=== PATIENT | male | born 1955 | race Caucasian/White ===

== ENCOUNTER → 2022-04-23 08:49 | Outpatient (BNVA) | payer MEDICARE, SELFPAY | PROVIDERS: PCP Family Medicine; Referring Provider Pediatrics; Visit Provider Internal Medicine | DX: I45.10 Unspecified right bundle-branch block (principal) | CPT/HCPCS: 93005; 99202 ==

== ENCOUNTER → 2022-05-02 08:44 | Outpatient (REF) | payer MEDICARE, SELFPAY ==
--- NOTE | 2022-05-02 08:47 | CA_ITS ---
Transthoracic Echocardiogram Amended Patient (Last, First, Middle): Iker Denis J Gender: Male Date of : 1955 Age: 66 Procedure Date: 05/02/2022 Procedure Type: Transthoracic Echocardiogram Location: OP Height: 180.34 cm Weight: 116.12 kg BSA: 2.34 m2 Heart Rate: 65 bpm BP: 120 / 80 mmHg Blood Bank Worker: SB Referring MD: Demetrio Mathew MD Systems Admin: Santos Mora MD Symptoms: I45.10 - Unspecified right bundle-branch block Study Quality: Adequate ECG Rhythm: Sinus Conclusions: - 1. Normal LV systolic function with mild asymmetric septal hypertrophy with impaired relaxation filling pattern 2. Normal cardiac valvular Doppler 3. Normal RV systolic pressure 4. Mildly dilated ascending aorta at 3.9 cm 5. No gross pericardial effusion Findings Left Ventricle Normal left ventricular size, thickness, and systolic function. The visually estimated ejection fraction is between 65-70%. There is no dynamic left ventricular outflow tract obstruction. Spectral Doppler is indicative of an impaired relaxation filling pattern. There is mild septal asymmetric hypertrophy.Peak GLS is -17.7%, within normal limits. Right Ventricle Normal right ventricular cavity size and systolic function. Atria The left atrium is likely dilated. There is lipomatous hypertrophy of the interatrial septum. There is no evidence of interatrial shunt. The right atrium is normal in size. Aortic Valve Normal aortic valve structure and function. There is no aortic valve stenosis. There is no aortic valve regurgitation. Mitral Valve Normal mitral valve structure and function. There is trace mitral valve regurgitation. There is no mitral valve stenosis. Pulmonic Valve The pulmonic valve is likely normal. Tricuspid Valve Normal tricuspid valve structure. There is trace tricuspid valve regurgitation. The right ventricular systolic pressure is normal. The right ventricular systolic pressure is 33 mmHg. Normal right atrial pressure. There is no evidence of pulmonary hypertension. Great Vessels The pulmonary artery was not well visualized. There is mild dilatation of the ascending aorta measuring 3.90 cm. Venous The inferior vena cava is normal in size and collapses greater than 50% with inspiration. Pericardium/Pleural There is no evidence of pericardial effusion. Prior Study Comparison Changes noted compared to prior study dated: 07/25/2014. ascending aorta is mildly dilated on this study Measurements 2D Linear Measurements IVSd: 1.15 0.6-0.9/0.6-1.0 cm LVIDd: 5.86 3.9-5.3/4.2-5.9 cm LVIDd Index: 2.50 2.4-3.2/2.2-3.1 cm/m2 LVIDs: 3.16 2.0-3.6 cm LVPWd: 0.85 0.7-1.1 cm LA Diam: 5.10 2.7-3.8/3.0-4.0 cm LAIDs Index: 2.18 1.5-2.3 cm/m2 LV Mass: 296.12 67-162/88-224 g LV Mass Index: 126.55 43-95/49-115 g/m2 LVOT Diam: 2.30 3.0+(-)1.3 cm 2D Systolic Function EF 4C: 57.90 >55% EF 2C: 75.70 >55% EF BiP: 68.80 >55% Mitral Valve MV Pk E: 0.98 MV PK A: 0.72 MV Decel Time: 230.00 E/A: 1.40 E'Lateral: 9.68 E'Medial: 8.16 E/E' Med: 12.00 E/E' Lat: 10.10 PHT: 67.00 MVA PHT: 3.28 Decel [place]: 4.26 Aortic Valve AoV Pk Carlos: 1.56 AoV Pk Grad: 10.00 TACOS: 3.60 LVOT LVOT Pk Carlos: 1.37 LVOT Mn Carlos: 0.85 LVOT VTI: 0.29 LVOT Pk Grad: 8.00 LVOT Mn Grad: 4.00 LVOT Diam: 2.30 LVOT Area: 4.15 Diastolic Function MV Pk E: 0.98 MV Pk A: 0.72 E/A: 1.40 E'Medial: 8.16 E/E' Med: 12.00 E' Laterial: 9.68 E/E' Lat: 10.10 Right Ventricle TAPSE (mm): 22.80 TVS' Carlos: 13.20 Tricuspid Valve TR Pk Carlos: 2.50 TR Pk Grad: 25.00 RA Press: 8.00 RVSP: 33.00 Great Vessels Aorta Sinus of Valsalva: 4.20 2.0-3.[address] [place]: 3.34 1.7-3.4 cm Ao Asc: 3.90 2.1-3.4 cm Pulmonary Veins Pulm Vein S/D 0.70 Pulmonary Valve PV Pk Carlos: 0.89 Peak PV Grad: 3.00 Updated in Other Vendor System with Status of Final Santos Mora MD electronically signed on 05/04/2022 1:53:27 PM with status of Final
== END ==
LOC: HO.CARD 08:44
PROVIDERS: Visit Provider Internal Medicine
DX: I45.10 Unspecified right bundle-branch block (principal)
CPT/HCPCS: 93306; 93356